=== PATIENT | male | born 1965 | race Caucasian/White ===

== ENCOUNTER 2021-08-31 09:15 | Outpatient (RCR) | payer OTHER, SELFPAY ==
[2021-08-31] MEDS: ACETAMINOPHEN 325 MG TABLET 650 MG PO (15:38)
[2021-08-31] MEDS: FAMOTIDINE 20 MG TABLET PO (15:39)
[2021-08-31] MEDS: diphenhydrAMINE HCl CAP 25 MG CAPSULE PO (15:39)
[2021-08-31 15:46] VITALS: BP 144/83; PULSE 71; RESP 20; TEMP 35.9; O2SAT 99
[2021-08-31 17:05] VITALS: BP 135/74; PULSE 66; O2SAT 99
== END 2021-08-31 17:00 ==
LOC: AMCINF 09:15
PROVIDERS: Visit Provider Internal Medicine Hematology & Oncology
DX: U07.1 COVID-19 (principal); I10 Essential (primary) hypertension; I25.10 Atherosclerotic heart disease of native coronary artery without angina pectoris; I48.91 Unspecified atrial fibrillation
CPT/HCPCS: A9270; M0247